=== PATIENT | male | born 1985 | race Caucasian/White ===

== ENCOUNTER 2022-08-26 20:33 | Emergency (ER) | payer OTHER ==
[~2022-08-26] VITALS: Ht 182.9 cm; Wt 90.7 kg
[~2022-08-26 20:33] MED LIST: [UNRECOGNIZED DRUG - OTHER] TOP
[2022-08-26 21:17] LABS: BASOPHILS ABSOLUTE AUTO 0.01 K/mm3 (0.00-0.23); BASOPHILS PERCENT AUTO 0 % (0-2); EOSINOPHILS ABSOLUTE AUTO 0.07 K/mm3 (0.00-0.68); EOSINOPHILS PERCENT AUTO 1 % (0-6); Hematocrit 33.3 % (37.0-53.0); Hemoglobin 11.3 g/dL (13.5-17.5); IMMATURE GRAN ABSOLUTE AUTO 0.02 K/mm3 (0.00-0.10); IMMATURE GRAN PERCENT AUTO 0 % (0-1); LYMPHOCYTES ABSOLUTE AUTO 1.65 K/mm3 (0.84-5.20); LYMPHOCYTES PERCENT AUTO 20 % (21-46); MONOCYTES ABSOLUTE AUTO 0.66 K/mm3 (0.16-1.47); MONOCYTES PERCENT AUTO 8 % (4-13); Mean Corpuscular HGB 31.7 pg (26.0-34.0); Mean Corpuscular HGB Conc 33.9 g/dL (31.5-36.5); Mean Corpuscular Volume 94 fL (80-100); NEUTROPHILS ABSOLUTE AUTO 5.84 K/mm3 (1.96-9.15); NEUTROPHILS PERCENT AUTO 71 % (41-73); Platelet Count 240 K/mm3 (150-400); RDW Coefficient Variation 12.3 % (11.7-14.2); RDW Standard Deviation 42.8 fL (35.1-46.3); Red Blood Cell Count 3.56 M/mm3 (4.30-5.90); White Blood Cell Count 8.25 K/mm3 (4.00-11.30)
[2022-08-26 21:47] LABS: Albumin/Globulin Ratio 0.5 (0.8-1.8); Bilirubin, Total 0.2 mg/dL (0.1-1.0); Bun/Creatinine Ratio 25.7 (12.0-20.0); Calcium, Blood 9.3 mg/dL (8.5-10.1); Creatinine, Blood 0.86 mg/dL (0.60-1.20); Globulin, Blood 5.5 g/dL (2.2-4.0); Potassium, Blood 3.8 mmol/L (3.5-5.5); Total Protein, Blood 8.5 g/dL (6.4-8.2)
[2022-08-26] MEDS ORDERED: Bactrim Ds Tab1 EACH PO (22:46)
[2022-08-26] MEDS ORDERED: CEPH500 PO (22:46)
== END 2022-08-26 23:05 | disposition home or self-care (01) ==
LOC: ER 20:33
PROVIDERS: Emergency Medicine
DX: L03.116 Cellulitis of left lower limb (principal); L03.115 Cellulitis of right lower limb; F17.210 Nicotine dependence, cigarettes, uncomplicated
CPT/HCPCS: 36415; 80053; 85025; 99283; A9270

== ENCOUNTER 2024-06-21 15:03 | Inpatient (IN) | payer OTHER ==
[~2024-06-21] VITALS: Ht 182.9 cm; Wt 70.3 kg
[~2024-06-21 15:03] MED LIST changes: +Bactrim Ds Tab1 EACH PO; +CEPH500 PO
[2024-06-21] MEDS ORDERED: NS 1,000 ML IV SCH ×2 (15:45→23:00)
[2024-06-21] MEDS ORDERED: Ketorolac Tromethamine 15mg Vial IV ONE (15:45)
[2024-06-21] MEDS ORDERED: Morphine Sulfate 4 MG/1 ML Injection IV ONE (15:45)
[2024-06-21] MEDS ORDERED: OxyCODONE 5 mg/Acetamin 325 mg TABLET PO PRN (17:15)
[2024-06-21] MEDS ORDERED: FentaNYL Citrate 50 MCG/ML 2 ML Injection IV PRN (17:15)
[2024-06-21] MEDS ORDERED: FLU VACC TS2024-25(6MOS UP)/PF 45 MCG/0.5 ML SYRINGE IM SCH (17:20)
[2024-06-21] MEDS ORDERED: Ondansetron HCl 2 MG / ML 2ML Vial IV PRN (17:20)
[2024-06-21] MEDS ORDERED: FentaNYL Citrate 50 MCG/ML 2 ML Injection IV ONE (18:00)
[2024-06-21 18:10] LABS: BASOPHILS ABSOLUTE AUTO 0.02 K/mm3 (0.00-0.23); BASOPHILS PERCENT AUTO 0 % (0-2); EOSINOPHILS ABSOLUTE AUTO 0.03 K/mm3 (0.00-0.68); EOSINOPHILS PERCENT AUTO 0 % (0-6); Hematocrit 37.8 % (37.0-53.0); Hemoglobin 12.8 g/dL (13.5-17.5); IMMATURE GRAN ABSOLUTE AUTO 0.01 K/mm3 (0.00-0.10); IMMATURE GRAN PERCENT AUTO 0 % (0-1); LYMPHOCYTES ABSOLUTE AUTO 1.26 K/mm3 (0.84-5.20); LYMPHOCYTES PERCENT AUTO 18 % (21-46); MONOCYTES ABSOLUTE AUTO 0.32 K/mm3 (0.16-1.47); MONOCYTES PERCENT AUTO 5 % (4-13); Mean Corpuscular HGB 32.7 pg (26.0-34.0); Mean Corpuscular HGB Conc 33.9 g/dL (31.5-36.5); Mean Corpuscular Volume 96 fL (80-100); Mean Platelet Volume 8.9 fL (9.1-12.4); NEUTROPHILS ABSOLUTE AUTO 5.34 K/mm3 (1.96-9.15); NEUTROPHILS PERCENT AUTO 77 % (41-73); Platelet Count 200 K/mm3 (150-400); RDW Coefficient Variation 12.7 % (11.7-14.2); RDW Standard Deviation 44.7 fL (35.1-46.3); Red Blood Cell Count 3.92 M/mm3 (4.30-5.90); White Blood Cell Count 6.98 K/mm3 (4.00-11.30)
[2024-06-21 18:40] LABS: Albumin, Blood 3.8 g/dL (3.4-5.0); Albumin/Globulin Ratio 0.9 (0.8-1.8); Bilirubin, Total 0.2 mg/dL (0.1-1.0); Bun/Creatinine Ratio 19.3 (12.0-20.0); Creatinine, Blood 0.94 mg/dL (0.60-1.20); Globulin, Blood 4.3 g/dL (2.2-4.0); Potassium, Blood 3.7 mmol/L (3.5-5.5); Total Protein, Blood 8.1 g/dL (6.4-8.2)
[2024-06-21 20:48] VITALS: BP 158/115
--- NOTE | 2024-06-21 20:48 | NUR ---
ADMIT *LATE ENTRY* PT ARRIVED TO RM 220 APPROX @1950. SBY TRANS TO RM BED WEIGHT BEARING ONLY ON RLE. ADMITTED FOR TIB/FIB FX OF LLE. REPORTS PAIN LEVEL 3/10 & STATES IT IS TOLERABLE. ORIENTED TO CALL LIGHT & RM.
[2024-06-21] MEDS ORDERED: Docusate Sodium 100 MG Cap PO SCH (21:00)
[2024-06-21] MEDS ORDERED: Sennosides 8.6 MG Tab PO SCH (21:00)
--- NOTE | 2024-06-22 00:41 | NUR ---
TRANSFER OF CARE PT NPO FOR PLANNED SURGERY FOR L TIB/FIB FX. PT ABLE TO MOVE LLE OFF BED, WIGGLE TOES, WARM, CAP REFIL <3 SEC. DENIES N/T. REPORTS PAIN 3-10 & IS MANAGED WELL W/CURRENT PAIN MEDS. GAVE REPORT TO STAR Correa
[2024-06-22 05:27] VITALS: BP 156/101
[2024-06-22 05:34] LABS: Hematocrit 36.5 % (37.0-53.0); Hemoglobin 12.1 g/dL (13.5-17.5); Mean Corpuscular HGB 31.9 pg (26.0-34.0); Mean Corpuscular HGB Conc 33.2 g/dL (31.5-36.5); Mean Corpuscular Volume 96 fL (80-100); Platelet Count 165 K/mm3 (150-400); RDW Coefficient Variation 12.7 % (11.7-14.2); RDW Standard Deviation 45.2 fL (35.1-46.3); Red Blood Cell Count 3.79 M/mm3 (4.30-5.90); White Blood Cell Count 5.41 K/mm3 (4.00-11.30)
--- NOTE | 2024-06-22 05:37 | NUR ---
JENNYFER ALVAREZ- PT HAS BEEN NPO SINCE CA. PAIN MANAGED PER AUG. PT HAS BEEN RESTING WITHOUT NEW ISSUES. CALL LIGHT IN REACH.
[2024-06-22 06:10] LABS: Bun/Creatinine Ratio 17.3 (12.0-20.0); Calcium, Blood 8.6 mg/dL (8.5-10.1); Creatinine, Blood 0.93 mg/dL (0.60-1.20); Potassium, Blood 4.2 mmol/L (3.5-5.5)
[2024-06-22 07:32] VITALS: BP 159/107
[2024-06-22] MEDS ORDERED: Tranexamic Acid 100 ML IV SCH (10:55)
[2024-06-22] MEDS ORDERED: CeFAZolin Sodium 2,000 MG in NS 100 ML IV SCH (10:55)
[2024-06-22 14:24] VITALS: BP 157/112
[2024-06-22] MEDS ORDERED: Lactated Ringer's 1,000 ML IV SCH (14:25)
--- NOTE | 2024-06-22 16:01 | NUR ---
PLAN IS FOR PATIENT TO HAVE SURGERY TOMORROW. WILL BE NPO AT MIDNIGHT TONIGHT. DIET ORDERED FOR PATIENT.
--- NOTE | 2024-06-22 17:18 | NUR ---
SHIFT SUMMARY PT CONTINUES TO REST COMFORTABLY IN BED. DENIES PAIN DURING SHIFT. ABLE TO STAND AND PIVOT TO BSC. PLAN IS FOR THE PATIENT TO BE NPO AT MIDNIGHT AND HAVE SURGERY TOMORROW. PT IS AGREEABLE, TOLERATING DIET AT THIS TIME.
[2024-06-22 19:31] VITALS: BP 159/104
[2024-06-23] VITALS (19 sets, daily range): BP systolic 116–201; BP diastolic 104–162
--- NOTE | 2024-06-23 04:42 | NUR ---
SHIFT SUMMARY MONISHA WAS DROWSY, BUT FULLY ORIENTED ON ASSESMENT. PT PAIN HAS REMAINED LOW T/O SHIFT, PT HAD SOME DIFFICULTY SLEEPING AFTER 2AM. PT KEPT NPO FROM MIDNIGHT. NO ACUTE EVENTS OR NOTED CHANGES TO PT CONDITION. AWAITING SURGERY ON DAY SHIFT.
[2024-06-23] MEDS ORDERED: Aspirin 81 MG TabEC PO SCH (09:00)
[2024-06-23] MEDS ORDERED: Lactated Ringer's 1,000 ML IV SCH (09:20)
[2024-06-23] MEDS ORDERED: CeFAZolin Sodium 2,000 MG VIAL ONE (09:22)
--- NOTE | 2024-06-23 09:23 | NUR ---
INTO SDS VIA BED FROM SURG FLOOR ROOM. History, Chart, Medications and Allergies reviewed before start of procedure.Patient confirms NPO status and agrees with scheduled surgery. Lungs clear T/O to Auscultation. IV TO LEFT AC INTACT, WINDOW DRESSING, FLUSHES WELL, INFUSING WITH LR.
[2024-06-23] MEDS ORDERED: propofoL 20 ML IV ONE (09:25)
[2024-06-23] MEDS ORDERED: FentaNYL Citrate 50 MCG/ML 2 ML Injection ONE (09:25)
[2024-06-23] MEDS ORDERED: HYDROmorphone HCl/Pf 1MG SYR ONE (10:52)
[2024-06-23] MEDS ORDERED: CeFAZolin Sodium 2,000 MG in NS 100 ML IV SCH (11:00)
[2024-06-23] MEDS ORDERED: Bupivacaine 0.5% HCl 5 MG/ML 30MLVIAL ONE (12:04)
[2024-06-23] MEDS ORDERED: Labetalol HCL 5 MG/ML 4ML Injection (Single Dose) ONE (12:44)
[2024-06-23] MEDS ORDERED: LORazepam 2 MG/ML 1ML Injection IV PRN (16:15)
[2024-06-23] MEDS ORDERED: HydrALAZINE HCl 20 MG / ML 1ML Vial IV PRN (16:15)
--- NOTE | 2024-06-23 18:07 | NUR ---
SHIFT SUMMARY POD0 L TIB FIB RODDING. PATIENT IS AOX4, HAD SOME HTN AND A BIT OF NAUSEA AND SWEATING, MEDICATED WITH HYDRALAZINE. NEW ORDERS FROM HOSPITALIST FOR ATIVAN. PATIENT MEDICATED FOR PAIN TOELRATED WELL AND WAS ABLE TO EAT SOME FOOD. PATIENT HAS NOT BEEN OUT OF BED OR WORKED WITH PT YET. PATIENT IS VOIDING AND PASSES FLATUS AT THIS TIME. VSS CALL LIGHT IS IN REACH.
[2024-06-24] VITALS (13 sets, daily range): BP systolic 146–164; BP diastolic 102–118
--- NOTE | 2024-06-24 04:52 | NUR ---
SHIFT SUMMARY MONISHA WAS ALERT AND FULLY ORIENTED ON ASSESMENT. POD 1 FOR TIBIAL RODDING. PT HAVING MINIMAL PAIN. DRESSING C/D/I. DISTAL CIRCULATION INTACT. PT VOIDING APPROPRATELY NO ACUTE EVENTS. NO CHANGES TO CONDITION.
[2024-06-24 05:09] LABS: Hematocrit 34.5 % (37.0-53.0); Hemoglobin 11.8 g/dL (13.5-17.5); Mean Corpuscular HGB 31.8 pg (26.0-34.0); Mean Corpuscular HGB Conc 34.2 g/dL (31.5-36.5); Mean Corpuscular Volume 93 fL (80-100); Mean Platelet Volume 9.1 fL (9.1-12.4); Platelet Count 161 K/mm3 (150-400); RDW Coefficient Variation 12.5 % (11.7-14.2); RDW Standard Deviation 43.1 fL (35.1-46.3); Red Blood Cell Count 3.71 M/mm3 (4.30-5.90); White Blood Cell Count 7.79 K/mm3 (4.00-11.30)
[2024-06-24 05:30] LABS: Bun/Creatinine Ratio 21.9 (12.0-20.0); Calcium, Blood 8.6 mg/dL (8.5-10.1); Creatinine, Blood 0.82 mg/dL (0.60-1.20)
--- NOTE | 2024-06-24 15:04 | NUR ---
CHANGE IN VS AND PRESENTATION: SHEET TAILER VENESSA REPORTED TO THIS RN AT ABOUT 1350 THAT SHE WOULD GIVE [address] LUU FOR WITHDRAWAL SYMPTOMS AND HTN. THIS RN ROUNDED ON PT AT ABOUT 1411. UPON ASSESSMENT, PT'S EYES ARE ROLLED IN THE BACK OF HIS HEAD, HE HAS SLIGHT TREMORS IN HANDS AND HEAD. PT DOES WAKE UP TO MY VOICE, AND IS ORIENTED BUT FALLS ASLEEP QUICKLY. VS TAKEN, PT CONTINUES TO HAVE HTN AND HR IS 121, TEMP 100.3, RR 25. SHEET TAILER LEIGH MADE AWARE OF VS AND ASSESSED PT AT BEDSIDE PT WELL MOIZ, SUPERVISOR KENNEL. PT WAS SEEN TAKING A WALK IN THE COOK AT ABOUT 1115 BEFORE THIS CHANGE IN PRESENTATION AND THIS RN IS UNSURE IF PT WENT OUTSIDE. PT DENIES USING ANY SUBSTANCES DURING HIS WALK. DR. LUU NOTIFIED OF PT STATUS AND THE ABOVE AT 1430, SEE NEW ORDERS.
[2024-06-24] MEDS ORDERED: LORazepam 2 MG/ML 1ML Injection IV STA (15:17)
[2024-06-24] MEDS ORDERED: Diltiazem HCl 5 MG / ML 5ML Vial IV PRN (15:20)
[2024-06-24] MEDS ORDERED: LORazepam 2 MG/ML 1ML Injection IV PRN (15:20)
--- NOTE | 2024-06-24 15:45 | NUR ---
TELE BOX APPLIED AND VERIFIED AT THIS TIME. HR ST 111. 5MG IV CARDIZEM GIVEN NOW.
--- NOTE | 2024-06-24 18:07 | NUR ---
PT'S BP IS UNCHANGED WITH HYDRALAZINE AND CARDIZEM. HR IS SLIGHTLY LOWER IN 110'S PER TELE. PT CONTINUES TO BE DIAPHORITIC. PT IS WAKING UP A LITTLE MORE AND IS CURRENLTY SITTING UP IN BED, EATING DINNER. DR. FREY, CALLED AGAIN BY AVIATION MAINTENANCE TECHNICIANREYNA CLIFFORD AT 1745. DR. FREY TO SEE PT SOON.
--- NOTE | 2024-06-24 18:35 | NUR ---
DR. LUU IN ROOM AT ABOUT 1815, PT IS SITTING UP IN BED, HR 115-120. PT IS ALERT, AND ORIENTED, ANSWERING QUESTIONS. TEMP 98.8. DR. LUU IS OK FOR PT TO BE MOVED TO PCU FOR CLOSER OBSERVATION OVER NIGHT. MID LEVEL PROJECT MANAGERREYNA CLIFFORD ARRANGING TRANSFER. URINE TOX SCREEN HAS NOT BEEN COLLECTED YET, AWAITING PT VOID. WILL PASS REPORT TO DEBRIDGING MACHINE OPERATOR
[2024-06-24 23:15] LABS: U Amphetamine Screen DETECTED; U Barbituate Screen Not Detected; U Benzodiazapine Screen DETECTED; U Buprenorphine Screen Not Detected; U Cannabinoids Screen Not Detected; U Cocaine Screen Not Detected; U Methadone Screen Not Detected; U Methamphetamine Screen Not Detected; U Opiates Screen Not Detected; U Oxycodone Screen Not Detected; U Phencyclidine Screen Not Detected
[2024-06-25] VITALS (7 sets, daily range): BP systolic 133–156; BP diastolic 93–109
--- NOTE | 2024-06-25 04:45 | NUR ---
SHIFT SUMMARY: MONISHA AROUSES EASILY AND RESPONDS APPROPRIATELY, ORIENTED X 4. VSS, NO ACUTE EVENTS OVERNIGHT. HE HAS DENIED PAIN, IS TOLERATING PO INTAKE WELL, AND HAS HAD GOOD URINE OUTPUT. FLAT AFFECT, BUT COOPERATIVE WITH CARE. HE IS LYING IN BED WITH THE CALL LIGHT IN REACH, BED IN LOWEST POSITION. WILL GIVE REPORT TO DAY SHIFT RN.
--- NOTE | 2024-06-25 08:45 | NUR ---
AM NOTE: PATIENT ALERT AND ORIENTED X4. WITHDRAWN AND FLAT. DENIES PAIN. DENIES ANXIETY. PATIENT SKIN CLAMMY. ORAL TEMP 97.8. ABLE TO TURN AND MOVE SELF IN BED. UP TO CHAIR WITH MEALS ENCOURAGED. TOE TOUCH WEIGHT BEARING TO LEFT SIDE WITH FWW. PHYSICAL THERAPY ORDERS IN PLACE. TELE SHOWING SINUS TACH WITH HR 100-120'S. DENIES CHEST PAIN/PRESSURE/PALPITATIONS. SBP 130-140'S. DBP 90-100'S. IV SALINE LOCKED. PPP. NO EDEMA NOTED. SCATTERED BRUISING/SCABS. ON ROOM AIR SATING ABOVE 95%. DENIES SOB/COUGH. LUNG SOUNDS CLEAR. BOWEL TONES PRESENT THROUGHOUT. DENIES ABDOMINAL PAIN/NAUSEA. TOLERATING PO DIET. USING URINAL TO VOID. LEFT LOWER EXTREMITY ARNULFO BANDAGE IN PLACE AND C/D/I. PEDAL PULSE PALPABLE. PATIENT TOE TOUCH WEIGHT BEARING WITH FWW. DENIES PAIN TO LLE. MOVING TOES AND FOLLOWING COMMANDS. CALL LIGHT IN REACH. DR. LUU TO BEDSIDE THIS RN PRESENT, NO NEW ORDERS FOR THIS RN TO PLACE.
[2024-06-25] MEDS ORDERED: Nicotine 14 MG PATCH TOP SCH (10:00)
[2024-06-25] MEDS ORDERED: dilTIAZem HCL 120 MG CAP.CD PO SCH (10:00)
[2024-06-25 10:32] LABS: Bun/Creatinine Ratio 29.1 (12.0-20.0); Calcium, Blood 9.6 mg/dL (8.5-10.1); Creatinine, Blood 0.69 mg/dL (0.60-1.20); Magnesium, Blood 2.5 mg/dL (1.6-2.4); Phosphorus, Blood 3.5 mg/dL (2.5-4.9); Potassium, Blood 4.1 mmol/L (3.5-5.5)
--- NOTE | 2024-06-25 13:22 | NUR ---
PATIENT MOM AT BEDSIDE. THIS RN PROVIDED UPDATE.
--- NOTE | 2024-06-25 17:41 | NUR ---
SHIFT SUMMARY: NO ACUTE CHANGES. PATIENT CONTINUES TO DENY PAIN/ANXIETY. UP IN COOK WALKING WITH FWW AND TOE TOUCH WEIGHT BEARING ON LEFT SIDE. TELE CONTINUES TO SHOW ST WITH HR 100 AT REST AND UP TO 140'S WHEN EXCERTING SELF. TOLERATING PO DIET. ON ROOM AIR. DRESSING REMAINS C/D/I. MOM AT BEDSIDE THIS AFTERNOON. PATIENT DENIES NEEDS AT THIS TIME. EATING DINNER. CALL LIGHT IN REACH.
[2024-06-26 01:56] VITALS: BP 147/102
[2024-06-26 07:19] VITALS: BP 141/93
--- NOTE | 2024-06-26 09:31 | NUR ---
AM NOTE: PATIENT ALERT AND ORIENTED X4. DENIES PAINS. DENIES N/T. UP WITH WALKER AND TOE TOUCH WEIGHT BEARING ON LEFT LEG. LEFT LEG DRESSING C/D/I. PATIENT DENIES DECREASED SENSATION/PAIN/NUMBNESS/TINGLING IN LEFT LEG. TELE SHOWING SINUS TACH WITH HR 100'S. SBP 140'S. DENIES CHEST PAIN/PRESSURE/PALPIATIONS. PPP. NO EDEMA NOTED. PATIENT REFUSING SCD'S. IV SALINE LOCKED. ON ROOM AIR SATING ABOVE 95%. DENIES SOB/COUGH. LUNG SOUNDS CLEAR. EVEN AND UNLABORED RESPIRATIONS. BOWEL TONES PRESENT. TOLERATING PO DIET. USING URINAL TO VOID. DENIES ABDOMINAL PAIN/NAUSEA. PLAN FOR POSSIBLE DISCHARGE THIS AFTERNOON. CALL LIGHT IN REACH. DENIES NEEDS.
[2024-06-26] MEDS ORDERED: ASPIR 8181 M1 PO (09:54)
[2024-06-26] MEDS ORDERED: SENN187 PO (09:55)
[2024-06-26] MEDS ORDERED: [UNRECOGNIZED DRUG - CODE] PO (09:55)
[2024-06-26] MEDS ORDERED: DOCU100 PO (09:55)
[2024-06-26] MEDS ORDERED: IBUP400 PO (09:56)
--- NOTE | 2024-06-26 10:48 | NUR ---
DISCHARGE: NO ACUTE CHANGES. MOM IN TO PICK PATIENT UP. IV REMOVED WNL. THIS RN DISCUSSED FOLLOW UP APPOINTMENTS WITH PCP AND ORTHO, WEIGHT BEARING STATUS, NEW MEDS, MEDS SENT TO [facility] AND SIGNS AND SYMPTOMS OF WHEN TO RETURN. PATIENT LEFT UNIT WITH ALL PERSONAL BELONGINGS AND WALKER.
== END 2024-06-26 10:46 | disposition home or self-care (01) | DRG 493 ==
LOC: ER 15:03 → SURS 15:04 → ERHOLD 15:04 → SURS 19:50 → PCU 06-24 19:41
PROVIDERS: Internal Medicine; Nurse Practitioner Acute Care; Orthopaedic Surgery Sports Medicine; Student in an Organized Health Care Education/Training Program; ADMIT Internal Medicine
PROC: 0QSH36Z Reposition Left Tibia with Intramedullary Internal Fixation Device, Percutaneous Approach (ICD-10-PCS; principal; 2024-06-23 09:30)
DX: S82.302A Unspecified fracture of lower end of left tibia, initial encounter for closed fracture (principal); F15.13 Other stimulant abuse with withdrawal; Z59.00 Homelessness unspecified; S82.832A Other fracture of upper and lower end of left fibula, initial encounter for closed fracture; I10 Essential (primary) hypertension; F17.210 Nicotine dependence, cigarettes, uncomplicated; V18.4XXA Pedal cycle driver injured in noncollision transport accident in traffic accident, initial encounter
CPT/HCPCS: 29515; 36415; 73610; 80048; 80053; 83735; 84100; 85025; 85027; 93005; 93010; 96361-59; 96374-59; 96375-59; 97116; 97161; 99284-25; A9270; C1713; J0360; J0690; J1171; J1885; J2060; J2270; J2704; J3010; J7030; J7120

== ENCOUNTER 2024-08-06 15:25 | Emergency (ER) | payer OTHER ==
[~2024-08-06] VITALS: Ht 182.9 cm; Wt 65.8 kg
[~2024-08-06 15:25] MED LIST changes: +ASPIR 8181 M1 PO; +DOCU100 PO; +IBUP400 PO; +SENN187 PO; +[UNRECOGNIZED DRUG - CODE] PO
[2024-08-06 15:35] VITALS: BP 146/80
== END 2024-08-06 15:49 | disposition home or self-care (01) ==
LOC: ER 15:25
DX: Z48.02 Encounter for removal of sutures (principal); F17.210 Nicotine dependence, cigarettes, uncomplicated; Z79.82 Long term (current) use of aspirin; Z79.899 Other long term (current) drug therapy
CPT/HCPCS: 99282

== ENCOUNTER 2025-03-31 23:18 | Emergency (ER) | payer OTHER ==
[~2025-03-31] VITALS: Ht 182.9 cm; Wt 70.3 kg
[2025-03-31 23:40] LABS: BASOPHILS ABSOLUTE AUTO 0.02 K/mm3 (0.00-0.23); BASOPHILS PERCENT AUTO 1 % (0-2); EOSINOPHILS ABSOLUTE AUTO 0.12 K/mm3 (0.00-0.68); EOSINOPHILS PERCENT AUTO 3 % (0-6); Hematocrit 36.6 % (37.0-53.0); Hemoglobin 12.5 g/dL (13.5-17.5); IMMATURE GRAN ABSOLUTE AUTO 0.00 K/mm3 (0.00-0.10); IMMATURE GRAN PERCENT AUTO 0 % (0-1); LYMPHOCYTES ABSOLUTE AUTO 1.85 K/mm3 (0.84-5.20); LYMPHOCYTES PERCENT AUTO 46 % (21-46); MONOCYTES ABSOLUTE AUTO 0.22 K/mm3 (0.16-1.47); MONOCYTES PERCENT AUTO 5 % (4-13); Mean Corpuscular HGB Conc 34.2 g/dL (31.5-36.5); Mean Corpuscular Volume 94 fL (80-100); NEUTROPHILS ABSOLUTE AUTO 1.84 K/mm3 (1.96-9.15); NEUTROPHILS PERCENT AUTO 45 % (41-73); NRBC ABSOLUTE 0.00 K/mm3 (0.00-0.02); NRBC Auto 0.0 /100 WBC (0.0-0.2); Platelet Count 197 K/mm3 (150-400); RDW Coefficient Variation 12.8 % (11.7-14.2); RDW Standard Deviation 44.0 fL (35.1-46.3)
[2025-04-01] LABS: Alanine Aminotransfer (ALT/SGP 37.0 U/L (12-78); Albumin, Blood 3.7 g/dL (3.4-5.0); Albumin/Globulin Ratio 0.8 (0.8-1.8); Anion Gap 7.0 mmol/L (3-11); Aspartate Aminotrans (AST/SGOT 33.0 U/L (12-37); Bilirubin, Total 0.3 mg/dL (0.1-1.0); Blood Urea Nitrogen 9.0 mg/dL (8-24); CO2, Blood 28.0 mmol/L (21-32); Calcium, Blood 8.7 mg/dL (8.5-10.1); Chloride, Blood 109.0 mmol/L (98-108); Creatinine, Blood 0.92 mg/dL (0.60-1.20); Globulin, Blood 4.4 g/dL (2.2-4.0); Glucose, Blood 115.0 mg/dL (70-99); Potassium, Blood 3.3 mmol/L (3.5-5.5); Sodium, Blood 141.0 mmol/L (136-145); Total Protein, Blood 8.1 g/dL (6.4-8.2)
[2025-04-01 01:15] VITALS: BP 177/125
[2025-04-01] MEDS ORDERED: RX Prepack 2 Sprays Naloxone HCL 4 MG/SPRAY UD ONE (01:20)
== END 2025-04-01 01:29 | disposition home or self-care (01) ==
LOC: ER 23:18
PROVIDERS: Emergency Medicine
DX: T40.411A Poisoning by fentanyl or fentanyl analogs, accidental (unintentional), initial encounter (principal); Z79.82 Long term (current) use of aspirin; Z79.899 Other long term (current) drug therapy; F17.210 Nicotine dependence, cigarettes, uncomplicated; Z59.89 Other problems related to housing and economic circumstances
CPT/HCPCS: 71046; 80053; 84484; 85025; 93005; 93010; 99284-25; A9270